=== PATIENT | male | born 1980 | race African-American/Black ===

== ENCOUNTER 2016-07-18 17:02 | Emergency (ER) | payer SELFPAY ==
[~2016-07-18] VITALS: Ht 177.8 cm; Wt 110.0 kg
[~2016-07-18 17:02] MED LIST: BACT800T5 PO
[2016-07-18 17:03] VITALS: BP 142/97; PULSE 78; RESP 14; TEMP 98.1; O2SAT 98
[2016-07-18] MEDS ORDERED: IBUP800T23 PO (18:33)
[2016-07-18] MEDS ORDERED: BACT800T5 PO (18:33)
[2016-07-18] MEDS ORDERED: CEPH-460 PO (18:33)
--- NOTE | 2016-07-18 18:34 | PD ---
HPI Chief Complaint: Skin Problem Time Seen by Provider: 18:32 Travel History International Travel<30 days: No Contact w/Intl Traveler<30days: No Traveled to known affect area: No History of Present Illness HPI 36-year-old male presents to the emergency Department with complaint of an abscess to his left armpit 4 days. Denies fever, chills, nausea, vomiting. Has history of abscesses and said they usually resolve on their own. Has tried warm compresses to the area without relief. No known allergies. No other modifying factors or associated signs and symptoms. PFSH Past Medical History Asthma: Yes Diminished Hearing: No Respiratory: Yes (SINUS INFECTION) Seizures: No Tetanus Vaccination: < 5 Years Influenza Vaccination: No Past Surgical History Surgical History: No Previous Surgery Social History Alcohol Use: No Tobacco Use: Yes (1 PPD) Substance Use: Yes (MARIJUANA) Allergies-Medications (Allergen,Severity, Reaction): Coded Allergies: No Known Allergies (Verified , 07/18/16) Reported Meds & Prescriptions Reported Meds & Active Scripts Active Ibuprofen 800 Mg Tab 800 Mg PO Q6HR PRN Bactrim DS (Sulfamethoxazole-Trimethoprim) 800-160 Mg Tab 1 Tab PO BID 10 Days Keflex (Cephalexin) 500 Mg Cap 500 Mg PO Q6H 10 Days Review of Systems Except as stated in HPI: all other systems reviewed are Neg Physical Exam Narrative GENERAL: Well-nourished, well-developed male patient, in no acute distress; afebrile, nontoxic-appearing SKIN: There is an indurated area in the left axilla which measures about 4 cm in diameter. It is fluctuant but there is no pointing or drainage. There is a zone of inflammation around it but no lymphangitis. HEAD: Atraumatic. Normocephalic. EYES: Pupils equal and round. No scleral icterus. No injection or drainage. ENT: Mucosa pink and moist. Airway patent. NECK: Trachea midline. CARDIOVASCULAR: Regular rate. RESPIRATORY: No accessory muscle use. GASTROINTESTINAL: Rounded. MUSCULOSKELETAL: No obvious deformities. No clubbing. No cyanosis. No edema. NEUROLOGICAL: Awake and alert. Oriented 3. No obvious cranial nerve deficits. Motor grossly within normal limits. Normal speech. PSYCHIATRIC: Appropriate mood and affect; insight and judgment normal. Data Data Last Documented VS Vital Signs Date Time Temp Pulse Resp B/P Pulse Ox O2 Delivery O2 Flow Rate FiO2 07/18/16 17:03 98.1 78 14 142/97 98 Orders Wound Culture And Gram Stain (07/18/16 18:35) MDM Medical Decision Making Medical Screen Exam Complete: Yes Emergency Medical Condition: Yes Medical Record Reviewed: Yes Differential Diagnosis Abscess, folliculitis, cellulitis Narrative Course 36-year-old male with abscess to his left axilla. See my procedure note for incision and drainage. Wound culture pending. Patient refused for the abscess to be packed. Keflex, Bactrim, ibuprofen prescribed for home. Patient is medically cleared and stable for discharge. Discussed reasons to return to the emergency department. Instructed patient to follow up with primary care provider. Patient agrees with treatment plan. The patients vital signs are stable and the patient is stable for outpatient follow-up and treatment. Patient discharged home, stable and in no acute distress. Procedures Procedure Narrative INCISION AND DRAINAGE OF ABSCESS: The area was prepped and was sterilely draped. Ethyl chloride was used to anesthetize the area. The area was properly anesthetized. A number 11 scalpel was used to make a 0.5-cm incision across the area of the abscess. Cultures were obtained. The abscess was drained an irrigated with normal saline. Patient refused packing of the abscess. Sterile dressing applied. Diagnosis Primary Impression: Abscess of left axilla Referrals: Primary Care Physician Patient Instructions: Abscess (ED), Abscess Follow-up (ED), Abscess Incision and Drainage (ED), General Instructions Departure Forms: Tests/Procedures, Work Release Enter return to work date: Jul 19, 2016 Additional Instructions: Complete full course of antibiotics Warm compresses to the affected area Keep area clean and dry Ibuprofen or Tylenol as directed and as needed for pain and inflammation Follow-up with primary care provider Return to emergency department immediately with worsening of symptoms Med/Other Pt SpecificInfo: Prescription(s) given Scripts Ibuprofen 800 Mg [id number] Mg PO Q6HR PRN (PAIN) #30 TAB Ref 0 Prov:Vanesa George 07/18/16 Sulfamethoxazole-Trimethoprim (Bactrim DS)800-160 Mg Tab1 Tab PO BID 10 Days Ref 0 Prov:Vanesa GeorgeP 07/18/16 Cephalexin (Keflex)500 Mg [id number] Mg PO Q6H 10 Days Ref 0 Prov:Vanesa George 07/18/16 Disposition: 01 DISCHARGE HOME Condition: Stable Vanesa George Jul 18, 2016 18:33
== END 2016-07-18 19:38 | disposition home or self-care (01) ==
LOC: NEPB 17:02
DX: L02.412 Cutaneous abscess of left axilla (principal); B96.89 Other specified bacterial agents as the cause of diseases classified elsewhere; F17.200 Nicotine dependence, unspecified, uncomplicated; Z87.2 Personal history of diseases of the skin and subcutaneous tissue; Z87.09 Personal history of other diseases of the respiratory system
CPT/HCPCS: 10060; 87070; 87185; 87205

== ENCOUNTER 2017-05-23 09:13 | Emergency (ER) | payer SELFPAY ==
[~2017-05-23] VITALS: Ht 175.3 cm; Wt 110.0 kg
[~2017-05-23 09:13] MED LIST changes: +CEPH-460 PO; +IBUP1TAB7 PO
[2017-05-23 09:14] VITALS: BP 160/102; PULSE 77; RESP 13; TEMP 99.5; O2SAT 98
--- NOTE | 2017-05-23 09:25 | PD ---
HPI Chief Complaint: Complaint Time Seen by Provider: 09:17 Travel History International Travel<30 days: No Contact w/Intl Traveler<30days: No Traveled to known affect area: No History of Present Illness HPI This is a 37-year-old male who 3 days ago was reaching to try to get out of bed over somebody when he straddled the bed and injured his groin area. For 2 days he was having some pain in his right groin, intermittent, worse with movement, improved with rest. For one day he's noticed that his right testicle has been very large and swollen. He denies any fevers or chills, denies any urethral discharge and has had 2-3 sexual partners in the past 6 months. PFSH Past Medical History Asthma: Yes Diminished Hearing: No Respiratory: Yes (SINUS INFECTION) Seizures: No Social History Alcohol Use: No Tobacco Use: Yes (1 PPD) Substance Use: Yes (MARIJUANA) Allergies-Medications (Allergen,Severity, Reaction): Coded Allergies: No Known Allergies (Verified Adverse Reaction, Unknown, 05/23/17) Reported Meds & Prescriptions Reported Meds & Active Scripts Active No Active Prescriptions or Reported Medications Review of Systems Except as stated in HPI: all other systems reviewed are Neg Physical Exam Narrative GENERAL:Well appearing, no acute distress SKIN: Focused skin assessment warm and dry. HEAD: Atraumatic. Normocephalic. EYES: Pupils equal and round. No injection or drainage. ENT: Moist mucous membranes NECK: Trachea midline. CARDIOVASCULAR: Regular rate and rhythm. No murmur appreciated. RESPIRATORY: Clear to auscultation. Breath sounds equal bilaterally. GASTROINTESTINAL: Abdomen soft, tender to palpation in the right lower quadrant with no rebound or guarding. :Enlarged testicle on the right, tender, normal cremasteric reflex, no urethral discharge MUSCULOSKELETAL: No obvious deformities. NEUROLOGICAL: Awake and alert. No obvious cranial nerve deficits. Moving all extremities. PSYCHIATRIC: Appropriate mood and affect; insight and judgment normal. Data Data Last Documented VS Vital Signs Date Time Temp Pulse Resp B/P (MAP) Pulse Ox O2 Delivery O2 Flow Rate FiO2 05/23/17 09:21 16 05/23/17 09:14 99.5 77 160/102 (121) 98 Orders Orders Us Testicles W Doppler (05/23/17 ) Urinalysis - C+S If Indicated (05/23/17 09:22) Ibuprofen (Motrin) (05/23/17 09:30) Ceftriaxone Inj (Rocephin Inj) (05/23/17 10:30) Lidocaine 1% Inj (50 Ml) (Xylocaine 1% I (05/23/17 10:30) Urine Culture (05/23/17 09:45) Labs Laboratory Tests Test 05/23/17 09:45 Urine Color YELLOW Urine Turbidity CLEAR Urine pH 5.5 Urine Specific [place] 1.031 Urine Protein 30 mg/dL Urine Glucose (UA) NEG mg/dL Urine Ketones 40 mg/dL Urine Occult Blood SMALL Urine Nitrite NEG Urine Bilirubin NEG Urine Urobilinogen 2.0 MG/DL Urine Leukocyte Esterase MOD Urine RBC 2 /hpf Urine WBC 23 /hpf Urine Squamous Epithelial Cells <1 /hpf Urine Mucus MANY /lpf Microscopic Urinalysis Comment CULTURE INDICATED MDM Medical Decision Making Medical Screen Exam Complete: Yes Emergency Medical Condition: Yes Interpretation(s) Temperature is 99.5, no tachycardia, hypertensive Urinalysis demonstrates pyuria Ultrasound demonstrates evidence of epididymoorchitis Differential Diagnosis Hydrocele, varicocele, inguinal hernia, epididymoorchitis Narrative Course This is a 37-year-old male who presents to the emergency department with swelling of his right testicle. Ultrasound demonstrates findings consistent with epididymoorchitis and he has pyuria on urinalysis. He's had multiple sexual partners in the past 6 months. He'll be treated empirically for gonorrhea, chlamydia and Trichomonas. Patient will be discharged home. Diagnosis Primary Impression: Epididymoorchitis Patient Instructions: General Instructions Additional Instructions: If you develop fever, chills, severe abdominal pain, persistent vomiting or inability to eat return to the emergency department. If there is a concern that you have sexually transmitted disease, your partner should be tested. You should followup with the health department to get tested for other sexually transmitted diseases like HIV and syphilis, as we do not test for these in the emergency department Med/Other Pt SpecificInfo: Prescription(s) given Scripts Doxycycline Hyclate (Doxycycline Hyclate) 100 Mg Cap 100 MG PO BID for Infection, #28 CAP 0 Refills Prov: Flor Robles MD 05/23/17 Disposition: 01 DISCHARGE HOME Condition: Stable Flor Robles MD May 23, 2017 09:25
[2017-05-23] MEDS ORDERED: IBUPROFEN 600 MG TAB PO ONE (09:30)
--- NOTE | 2017-05-23 10:02 | RADRPT ---
EXAM DATE/TIME: 05/23/2017 09:35 [facility] COMPARISON: No previous studies available for comparison. INDICATIONS : Right testicular pain. MEDICAL HISTORY : Testicular pain. Asthma. Substance use. SURGICAL HISTORY : None. ENCOUNTER: Initial ACUITY: 2 days PAIN SCORE: 10/10 LOCATION: Bilateral scrotum. MEASUREMENTS: RIGHT TESTICLE: 3.6 x 2.6 x 3.8cm LEFT TESTICLE: 3.3 x 3.0 x 4.6 cm FINDINGS: Ultrasound examination of the testicles demonstrates normal size bilaterally. There is normal Doppler flow on the left with increased flow on the right as well as increased flow to the epididymis charac teristic of epididymoorchitis. Small bilateral epididymal cysts are present. No hydrocele is present CONCLUSION: Increased flow to the right testicle and epididymis characteristic of epididymoorchitis. Jerson Ventura MD on May 23, 2017 at 9:59 Board Certified Radiologist. This report was verified electronically.
[2017-05-23 10:20] LABS: BILIRUBIN, URINE NEG (NEG); BLOOD, URINE SMALL (NEG); GLUCOSE,URINE NEG (NEG); KETONE, URINE 40 mg/dL (NEG); MUCUS URINE MANY /lpf (OCC); NITRITE,URINE NEG (NEG); PH, URINE 5.5 (5.0-8.5); SQUAMOUS EPITHELIAL CELL URINE <1 /hpf (0-5); URINE COLOR YELLOW (YELLW/STRAW); URINE LEUKOCYTE ESTERASE MOD (NEG)
[2017-05-23] MEDS ORDERED: DOXY100C PO (10:28)
[2017-05-23] MEDS ORDERED: metroNIDAZOLE 500 MG TAB PO ONE (10:30)
[2017-05-23] MEDS ORDERED: LIDOCAINE HCL 1% 50 ML VIAL XX ONE (10:30)
[2017-05-23] MEDS ORDERED: cefTRIAXone 250 MG VIAL IM ONE (10:30)
[2017-05-23] MEDS ORDERED: LIDOCAINE HCL 1% PF 2 ML VIAL OTHER ONE (10:45)
== END 2017-05-23 11:04 | disposition home or self-care (01) ==
LOC: NEPD 09:13
DX: N45.3 Epididymo-orchitis (principal); F17.200 Nicotine dependence, unspecified, uncomplicated
CPT/HCPCS: 76870; 81001; 87086; 93975; 96372; 99285; J0696